=== PATIENT | male | born 1995 | race Caucasian/White ===

== ENCOUNTER 2017-01-03 11:44 | Emergency (ER) | payer SELFPAY ==
[~2017-01-03] VITALS: Ht 167.6 cm; Wt 70.9 kg
[2017-01-03] MEDS ORDERED: NAPROSYN500 MG PO (13:24)
[2017-01-03 13:32] VITALS: BP 134/93
== END 2017-01-03 13:36 | disposition home or self-care (01) ==
LOC: EME 11:44
DX: S93.401A Sprain of unspecified ligament of right ankle, initial encounter (principal); W10.9XXA Fall (on) (from) unspecified stairs and steps, initial encounter; X50.1XXA Overexertion from prolonged static or awkward postures, initial encounter
CPT/HCPCS: 73610; 99281; 99284